=== PATIENT | male | born 1995 | race Caucasian/White ===

== ENCOUNTER 2017-07-15 22:04 | Emergency (ER) | payer MEDICAID ==
[~2017-07-15] VITALS: Ht 177.8 cm; Wt 100.0 kg
[2017-07-15 22:06] VITALS: BP 134/68
[2017-07-15] MEDS ORDERED: CLON0.25 PO (22:55)
== END 2017-07-15 22:57 | disposition home or self-care (01) ==
LOC: ED 22:40
DX: R05 Cough (principal)
CPT/HCPCS: 99283